=== PATIENT | male | born 1995 | race Caucasian/White ===

== ENCOUNTER 2023-05-08 07:52 | Emergency (ER) | payer SELFPAY ==
[~2023-05-08] VITALS: Ht 172.7 cm; Wt 73.9 kg
[2023-05-08] MEDS ORDERED: ACETAMINOPHEN ES 500 MG TABLET PO ONE (08:30)
[2023-05-08] MEDS ORDERED: ACETAMINOPHEN ES 500 MG TABLET ONE (08:37)
[2023-05-08 11:02] VITALS: BP 141/68; TEMP 98.4; O2SAT 100
== END 2023-05-08 11:02 | disposition home or self-care (01) ==
LOC: ER 07:55
DX: S09.8XXA Other specified injuries of head, initial encounter (principal); V89.2XXA Person injured in unspecified motor-vehicle accident, traffic, initial encounter; Y93.89 Activity, other specified; Y92.89 Other specified places as the place of occurrence of the external cause; Y99.8 Other external cause status
CPT/HCPCS: 70450-TC; 71045-TC; 73130-TC; 73590-TC